=== PATIENT | male | born 1955 | race Hispanic/Latino ===

== ENCOUNTER 2018-04-09 11:21 | Emergency (ER) | payer SELFPAY ==
--- NOTE | 2018-04-09 12:13 | ER ---
Nurse's Notes [facility] Name: Stalin Stephens Age: 62 yrs Sex: Male : 1955 Arrival Date: 04/09/2018 Time: 11:25 Bed Waiting Private MD: Diagnosis: Presentation: 04/09 11:46 Presenting complaint: Patient states: His right foot has been swollen since last aj1 Sunday. Reports this has happened before because he was retaining fluids. Denies injury to the area. Transition of care: patient was not received from another setting of care. Onset of symptoms was 2017. Risk Assessment: Do you want to hurt yourself or someone else? Patient reports no desire to harm self or others. Initial Sepsis Screen: Does the patient meet any 2 criteria? No. Patient's initial sepsis screen is negative. Does the patient have a suspected source of infection? No. Patient's initial sepsis screen is negative. Care prior to arrival: None. 11:46 Method Of Arrival: Ambulatory aj1 11:46 Acuity: SABA 3 aj1 11:55 Note Pre School Manager service used. Pre School Manager ID number [id number]. aj1 Triage Assessment: 11:53 General: Appears in no apparent distress. uncomfortable, Behavior is calm, cooperative, aj1 appropriate for age. Pain: Complains of pain in right leg Pain currently is 5 out of 10 on a pain scale. Neuro: Level of Consciousness is awake, alert, obeys commands. Cardiovascular: Patient's skin is warm and dry. Respiratory: Airway is patent Respiratory effort is even, unlabored, Respiratory pattern is regular, symmetrical. Historical: - Allergies: 11:53 No Known Allergies; aj1 - Home Meds: 11:53 duplat 400 mg [Active]; hidroclorotiazida 25 mg [Active]; redaflam 100 mg [Active]; aj1 - PMHx: 11:53 Hypertension; circulation problems; aj1 - PSHx: 11:53 None; aj1 - Immunization history:: Flu vaccine is not up to date. - Social history:: Smoking status: Patient/guardian denies using tobacco. - Ebola Screening: : Patient denies travel to an Ebola-affected area in the 21 days before illness onset. Assessment: 12:12 Reassessment: Patient told registration staff that he did not want to be seen anymore aj1 and walked out the door. Vital Signs: 11:53 BP 142 / 95; Pulse 67; Resp 18; Temp 97.2(TE); Pulse Ox 100% on R/A; Weight 113.4 kg; aj1 Height 5 ft. 11 in. (180.34 cm) (R); Pain 5/10; 11:53 Body Mass Index 34.87 (113.40 kg, 180.34 cm) aj1 ED Course: 11:25 Patient arrived in ED. rg4 11:50 Triage completed. aj1 11:53 Arm band placed on Patient placed in waiting room, Patient notified of wait time. aj1 Administered Medications: No medications were administered Outcome: 12:12 Eloped from waiting room. aj1 12:13 Patient left the ED. aj1 Signatures: Aspen Ness, RN RN aj1 Kay Sutton rg4
== END 2018-04-09 12:13 | disposition left against medical advice (07) ==
LOC: ER 11:21
DX: Z53.21 Procedure and treatment not carried out due to patient leaving prior to being seen by health care provider (principal)
CPT/HCPCS: 99281